=== PATIENT | female | born 1955 | race African-American/Black ===

== ENCOUNTER 2018-03-01 06:29 | Emergency (ER) | payer OTHER | END 2018-03-01 07:17 | disposition home or self-care (01) | LOC: FTE 06:29 | DX: R09.81 Nasal congestion (principal); J44.9 Chronic obstructive pulmonary disease, unspecified; I10 Essential (primary) hypertension; Z87.891 Personal history of nicotine dependence | CPT/HCPCS: 99283; Z7502 ==

== ENCOUNTER 2019-01-09 07:50 | Emergency (ER) | payer MEDICARE, OTHER ==
[2019-01-09] MEDS: ASPIRIN 81 MG TAB PO (08:30)
[2019-01-09] MEDS: NITROGLYCERIN (SL) 0.4 MG TAB SL (08:30)
[2019-01-09 08:42] LABS: ADD MAN DIFF? NO
[2019-01-09 08:45] LABS: BASOPHILS % 0.5 % (0.0-2.0); EOSINOPHILS # 0.2 10^3/ul (0.0-0.5); EOSINOPHILS % 5.3 % (0.0-7.0); HEMATOCRIT 40.7 % (37.0-47.0); HEMOGLOBIN 12.7 g/dl (12.0-16.0); LYMPHOCYTES # 1.7 10^3/ul (0.8-2.9); LYMPHOCYTES % 40.6 % (15.0-51.0); MEAN CORPUSCULAR HEMOGLOBIN 28.3 pg (29.0-33.0); MEAN CORPUSCULAR HGB CONC 31.2 g/dl (32.0-37.0); MEAN CORPUSCULAR VOLUME 90.6 fl (82.0-101.0); MEAN PLATELET VOLUME 9.1 fl (7.4-10.4); MONOCYTE # 0.6 10^3/ul (0.3-0.9); MONOCYTES % 13.4 % (0.0-11.0); NEUTROPHIL # 1.7 10^3/ul (1.6-7.5); PLATELET COUNT 202 10^3/UL (140-415); RED BLOOD COUNT 4.49 10^6/ul (4.20-5.40); RED CELL DISTRIBUTION WIDTH 13.4 % (11.5-14.5)
[2019-01-09 08:45] LABS: WHITE BLOOD COUNT 4.2 10^3/ul (4.8-10.8)
[2019-01-09 09:04] LABS: ANION GAP 8 (5-13); BLOOD UREA NITROGEN 18 mg/dl (7-20); CALCIUM 9.6 mg/dl (8.4-10.2); CARBON DIOXIDE 26 mmol/L (21-31); CHLORIDE 110 mmol/L (97-110); CREATININE 0.74 mg/dl (0.44-1.00); Estimated GFR > 60 mL/min (>60); GLUCOSE 92 mg/dl (70-220); SODIUM 144 mmol/L (135-144)
[2019-01-09 09:15] LABS: TROPONIN-I < 0.012 ng/ml (0.000-0.120)
[2019-01-09 14:15] LABS: TROPONIN-I < 0.012 ng/ml (0.000-0.120)
== END 2019-01-09 15:15 | disposition home or self-care (01) ==
LOC: E/R 07:50
DX: I10 Essential (primary) hypertension (principal); J44.9 Chronic obstructive pulmonary disease, unspecified
CPT/HCPCS: 36415; 71045; 80048; 84484; 85025; 93005; 99285-25